=== PATIENT | male | born 1940 | race Caucasian/White ===

== ENCOUNTER → 2016-09-19 | Outpatient (REF) | payer MEDICARE, OTHER ==
--- NOTE | 2016-09-20 01:59 | REP ---
Clinical: Back pain extending to the extremities. Findings: Hip joint appears normal for age. Mild medial joint space narrowing is suggested without further overt osteoarthritic changes. No spurring or osteophytes are identified. No periarticular calcifications are identified. Surrounding soft tissues are unremarkable. Impression: Medial joint space narrowing. Otherwise age appropriate examination. Signed by Irving Miguel MD 09/20/2016 01:50 A
--- NOTE | 2016-09-20 02:03 | REP ---
Clinical: Lower back pain. Technique: AP, lateral, bilateral oblique, and coned-down views of the lumbosacral spine. Comparison: 10/10/2013. Findings: Moderate to advanced multilevel degenerative disc osteophyte complexes are again identified and essentially stable when compared to 2013. Findings include bridging osteophytes, endplate sclerosis/irregularity, disc space narrowing and hypertrophic facet changes. No acute fracture / compression injury or subluxation identified. Impression: Advanced multilevel degenerative changes similar to 10/10/2013. No evidence for acute fracture / compression injury or subluxation. Signed by Irving Miguel MD 09/20/2016 01:54 A
== END ==
LOC: M RAD 14:27 → EDSTATUS 11-09 16:43
PROVIDERS: ATTEND Internal Medicine
DX: M54.5 Low back pain (principal)

== ENCOUNTER → 2016-12-13 | Outpatient (CLI) | payer MEDICARE, OTHER ==
[~2016-12-13] VITALS: Ht 172.7 cm; Wt 75.3 kg
[~2016-12-13] MED LIST: NS 1,000 ML IV SCH; PROPOFOL 200 MG/20 ML VIAL As Ordered ONE
--- NOTE | 2016-12-13 10:59 | ROOR ---
Patient Name: Shiva Parmar Procedure Date: 12/13/2016 10:23 AM Date of : 1940 Age: 76 Room: [facility] Gender: Male Note Status: Finalized Procedure: Colonoscopy to Cecum + Cold Snare Polypectomy + Hemoclips Indications: Positive Cologuard test Providers: Tyrel Dewitt MD Referring MD: PARVEEN MILLS JR, MD Requesting Provider: Medicines: Monitored Anesthesia Care Complications: No immediate complications. Procedure: Pre-Anesthesia Assessment: - The heart rate, respiratory rate, oxygen saturations, blood pressure, adequacy of pulmonary ventilation, and response to care were monitored throughout the procedure. The Colonoscope was introduced through the anus and advanced to the cecum, identified by appendiceal orifice and ileocecal valve. The colonoscopy was performed without difficulty. The patient tolerated the procedure well. The quality of the bowel preparation was excellent. Findings: The perianal and digital rectal examinations were normal. Non-bleeding internal hemorrhoids were found during retroflexion. The hemorrhoids were small and Grade I (internal hemorrhoids that do not prolapse). Scattered small-mouthed diverticula were found in the recto-sigmoid colon, sigmoid colon and descending colon. A medium polyp was found at 10 cm proximal to the anus. The polyp was sessile. The polyp was removed with a cold snare. Resection and retrieval were complete. To prevent bleeding after the polypectomy, three hemostatic clips were successfully placed (MR conditional). There was no bleeding at the end of the procedure. Two sessile polyps were found in the mid ascending colon. The polyps were small in size. These polyps were removed with a cold snare. Resection and retrieval were complete. To prevent bleeding after the polypectomy, three hemostatic clips were successfully placed (MR conditional). There was no bleeding at the end of the procedure. The exam was otherwise without abnormality on direct and retroflexion views. Impression: - Non-bleeding internal hemorrhoids. - Diverticulosis in the recto-sigmoid colon, in the sigmoid colon and in the descending colon. - One medium polyp at 10 cm proximal to the anus, removed with a cold snare. Resected and retrieved. Clips (MR conditional) were placed. - Two small polyps in the mid ascending colon, removed with a cold snare. Resected and retrieved. Clips (MR conditional) were placed. - The examination was otherwise normal on direct and retroflexion views. - The exam was otherwise normal to the cecum. Recommendation: - Patient has a contact number available for emergencies. The signs and symptoms of potential delayed complications were discussed with the patient. Return to normal activities tomorrow. Written discharge instructions were provided to the patient. - High fiber diet. - Discharge patient to home. - Check Portal Online for Path Results.([email or web address]) - Continue present medications. - Await pathology results. - Return to referring physician. - The findings and recommendations were discussed with the patient's family. Tyrel Dewitt MD Tyrel Dewitt MD 12/13/2016 10:59:03 AM This report has been signed electronically. Number of Addenda: 0 Note Initiated On: 12/13/2016 10:23 AM Estimated Blood Loss: Estimated blood loss: none.
[2016-12-13 11:15] VITALS: BP 135/74
== END | disposition home or self-care (01) ==
LOC: M OPP 09:25
PROVIDERS: ATTEND Internal Medicine Gastroenterology
DX: K64.0 First degree hemorrhoids (principal); K57.30 Diverticulosis of large intestine without perforation or abscess without bleeding; K62.1 Rectal polyp; D12.2 Benign neoplasm of ascending colon; M19.90 Unspecified osteoarthritis, unspecified site; Z87.891 Personal history of nicotine dependence

== ENCOUNTER → 2018-05-08 | Outpatient (REF) | payer MEDICARE | LOC: M LAB REF 12:27 | DX: C44.519 Basal cell carcinoma of skin of other part of trunk (principal) | CPT/HCPCS: 88305 ==

== ENCOUNTER 2021-06-07 17:35 | Inpatient (IN) | payer MEDICARE, OTHER ==
[~2021-06-07] VITALS: Ht 172.7 cm; Wt 74.4 kg
--- NOTE | 2021-06-07 18:06 | REP ---
INDICATION: CHEST PAIN COMPARISON: None. TECHNIQUE: Portable AP view of the chest FINDINGS: The cardiac silhouette is mildly enlarged. Mediastinum is otherwise normal for portable technique. The lung mackenzie are clear without acute consolidation, effusion, or pneumothorax. Skeletal structures are intact. IMPRESSION: No acute cardiopulmonary process appreciated. <Electronically signed by Irving Miguel > 06/07/21 [id number]
[2021-06-07] MEDS: METOPROLOL 5 MG/5 ML VIAL IV SCH ×2 (18:42→20:11)
[2021-06-07 18:53] LABS: BASO % 0.5 % (0.0-1.0); EOS # 0.1 10^3/uL (0.0-0.5); EOS % 1.4 % (0.0-3.0); HEMATOCRIT 39.6 % (42.0-52.0); LYMPH # 1.1 10^3/uL (1.5-5.0); LYMPH % 18.1 % (24.0-44.0); MEAN CORPUSCULAR HEMOGLOBIN 31.6 pg (27.0-33.0); MEAN CORPUSCULAR HGB CONC 32.8 g/dl (32.0-36.5); MEAN CORPUSCULAR VOLUME 96.4 fl (80.0-96.0); MONO # 0.7 10^3/uL (0.0-0.8); MONO % 10.3 % (2.0-8.0); NEUTROPHILS # 4.4 10^3/uL (1.5-8.5); NEUTROPHILS % 69.4 % (36.0-66.0); PLATELET COUNT, AUTOMATED 189 10^3/uL (150-450); RED BLOOD COUNT 4.11 10^6/uL (4.30-6.10); WHITE BLOOD COUNT 6.3 10^3/uL (4.0-10.0)
[2021-06-07 19:28] LABS: BLOOD UREA NITROGEN 15 MG/DL (7-18); CALCIUM LEVEL 8.6 MG/DL (8.8-10.2); CARBON DIOXIDE LEVEL 26 MEQ/L (21-32); CHLORIDE LEVEL 108 MEQ/L (98-107); CK-MB VALUE MASS 5.8 NG/ML (<3.6); CPK CREATINE PHOSPHOKINASE 247 U/L (39-308); CREATININE FOR GFR 0.79 MG/DL (0.70-1.30); GLOMERULAR FILTRATION RATE > 60.0 (>35); GLUCOSE, FASTING 101 MG/DL (70-100); MB/CK RELATIVE INDEX 2.35 (< OR =4); POTASSIUM SERUM 4.6 MEQ/L (3.5-5.1); SODIUM LEVEL 139 MEQ/L (136-145); TROPONIN I < 0.02 NG/ML (< 0.10)
[2021-06-07] MEDS ORDERED: ACETAMINOPHEN TAB 650MG DOSE (2X325MG) PO PRN (20:00)
[2021-06-07] MEDS ORDERED: LEVALBUTEROL 1.25 MG/0.5 ML CONCENTRATE NEB NEB PRN (20:00)
[2021-06-07] MEDS ORDERED: LORazepam 0.5 MG TAB PO ONE (20:00)
[2021-06-07] MEDS ORDERED: BENZONATATE 100MG CAPSULE PO PRN (20:00)
[2021-06-07] MEDS ORDERED: CYCL5TAB PO (20:27)
[2021-06-07] MEDS ORDERED: D31000TA2 PO (20:27)
[2021-06-07] MEDS ORDERED: VITMTA PO ×2 (20:27)
[2021-06-07] MEDS ORDERED: ROSU40TA4 PO (20:27)
[2021-06-07] MEDS ORDERED: ACET-683 PO (20:27)
[2021-06-07] MEDS ORDERED: HOME MED LIST COMPLETE! XX SCH (20:30)
[2021-06-07] MEDS ORDERED: ENOXAPARIN 100MG/1ML SYRINGE (J1650 PER 10MG) SC ONE (21:00)
--- NOTE | 2021-06-07 21:47 | HPEPDOC ---
General Date of Admission 06/07/2020 Date of Service: Jun 07, 2021 Chief Complaint The patient is a 81-year-old male admitted with a reason for visit of Palpitations. Source: Patient Exam Limitations: Hard of hearing (pt without hearing aids; he responds appropriately and only asks for clarification once or twice with examiner wearing mask ) History of Present Illness Shiva Parmar is an 81-year-old male with significant medical history of hyperlipidemia, former smoker and osteoarthritis who presents with complaints of shortness of breath. Patient describes feeling at baseline until about 10 days ago. Patient describes at that time having a "squealing invoice" almost as if wheezing and he went to [facility] to obtain something for congestion/cough patient reports he took this medicine for 10 days 1 capsule every 12 hours possibly Mucinex but he is poor historian as to the name and as it was not doing anything he quit taking it. Since that time however he endorses some dyspnea on exertion generalized fatigue with activity and some mild trace ankle edema. Patient reports that he has not taken any other medications however 14 days ago he did stop taking a nerve medication for his osteoarthritis as he wants to limit his medication intake. Again, patient unable to say exact name of medication but he did describe as nerve pain medication that he would take with tramadol. As patient still not feeling well he opted to go to clinic today where he was found to have elevated heart rate and told to come to the ER. Pt denies page, sinus congestion, sore throat, productive cough, palpitations, chest pain, n/v/d, abdominal pain, sensory changes or syncope. Of note, patient diminished bases, no leukocytosis, normotensive however notably tachycardic 168 upon arrival irregularly irregular. EKG confirms A. fib RVR. BNP pending. Magnesium pending, calcium 8.6, hemoglobin 13, respiratory panel negative. Chest x-ray nonacute. Patient will be admitted for further evaluation management of presenting concerns. Home Medications Scheduled Cholecalciferol (Vitamin D3) (Vitamin D3) 1,000 Unit Tablet, 2,000 UNITS PO DAILY, (Reported) Multivitamins (Thera M Plus Tablet) 1 Each Tablet, 1 TAB PO QAM, (Reported) Multivitamins (Thera M Plus Tablet) 1 Each Tablet, 1 TAB PO DAILY, (Reported) Rosuvastatin Calcium (Rosuvastatin Calcium) 40 Mg Tablet, 40 MG PO DAILY, (Reported) Scheduled PRN Acetaminophen (Acetaminophen) 500 Mg Tablet, 500 MG PO Q4H PRN for PAIN LEVEL 1- 4, (Reported) Cyclobenzaprine HCl (Cyclobenzaprine HCl) 5 Mg Tablet, 2.5 MG PO TID PRN for MUSCLE SPASMS, (Reported) Allergies Coded Allergies: No Known Allergies (Unverified , 12/05/16) Past Medical History Medical History High cholesterol, former smoker, OA, LITTLE TRAVERSE- uses hearing aids Surgical History Hernia repair, sigmoidoscopy, right rotator cuff repair Family History Significant Family History: Cancer, COPD SisterCOPD, sister#2-COPD and heart disease, brother -COPD, father -COPD and throat cancer, mothercolon resection d/t ?Cancer Social History * Smoker: former Smoker (Quit 60 years) Alcohol: Denies Drugs: denies Recent Travel/Sick Contacts: Denies: Recent travel, Recent sick contacts Patient leads active lifestyle he reports hiking daily. A-FIB/CHADSVASC A-FIB History Current/History of A-Fib/PAF?: Yes Current PO Anticoag Therapy: No Age/Risk Factor Scoring CHADSVASC: CHADSVASC Response (Comments) Value Age Risk Factor Age >/= 75 years old 2 Gender Risk Factor Male 0 Hx of CHF No 0 Hx of HTN No 0 Hx of Stroke/TIA/or VTE No 0 Hx of Diabetes No 0 Hx of Vascular Disease No 0 Total 2 Treatment Treatment ordered: Other (Lovenox) Other anticoagulant ordered: Lovenox bridge Review of Systems Constitutional: Reports: Fatigue; Denies: Chills, Fever, Night Sweats Eyes: Denies: Pain, Vision change ENT: Denies: Head Aches, Ear Pain, Dysphagia Skin: Denies: Rash, Lesions, Breakdown Pulmonary: Reports: Dyspnea; Denies: Cough Cardiovascular: Reports: Edema; Denies: Chest Pain, Palpitations, Orthopnea, Paroxysmal Noc. Dyspnea, Lt Headedness Gastrointestinal: Denies: Nausea, Vomiting, Abdominal Pain, Diarrhea Genitourinary: Denies: Dysuria, Frequency, Incontinence, Retention Hematologic: Denies: Bruising, Bleeding Excessively Musculoskeletal: Denies: Neck Pain, Back Pain, Joint Pain, Muscle Pain, Spasms Neurological: Denies: Weakness, Numbness, Change in speech, Confusion Psych: Reports: Mood Normal; Denies: Depression, Memory Issues Physical Examination General Exam: Positive: Alert, Cooperative, No Acute Distress Eye Exam: Positive: PERRLA, Conjunctiva & lids normal, EOMI; Negative: Sclera icteric ENT Exam: Positive: Atraumatic, Mucous membr. moist/pink, Pharynx Normal Neck Exam: Positive: Supple; Negative: JVD, thyromegaly Chest Exam: Positive: Diminished (Diminished bases) Heart Exam: Positive: Tachycardic, Irregular Rhythm, Normal S1, Normal S2; Negative: Murmurs, Rubs Telemetry: Positive: Atrial fibrillation Abdomen Exam: Positive: Normal bowel sounds, Soft; Negative: Tenderness, Hepatospenomegaly Extremity Exam: Positive: Edema (Trace pedal edema), Normal pulses; Negative: Clubbing, Cyanosis, Tenderness Skin Exam: Positive: Nl turgor and temperature; Negative: Breakdown, Lesion Neuro Exam: Positive: Normal Gait, Normal Speech, Cranial Nerves 3-12 NL, Reflexes 2+ Psych Exam: Positive: Mental status NL, Mood NL, Oriented x 3 Vital Signs Vital Signs Date Time Temp Pulse Resp B/P (MAP) Pulse Ox O2 Delivery O2 Flow Rate FiO2 06/07/21 17:42 97.6 168 24 147/113 (124) 97 Room Air Laboratory Data Labs 24H Laboratory Tests 2 06/07/21 18:17: Immature Granulocyte % (Auto) 0.3, Neutrophils (%) (Auto) 69.4H, Lymphocytes (%) (Auto) 18.1L, Monocytes (%) (Auto) 10.3H, Eosinophils (%) (Auto) 1.4, Basophils (%) (Auto) 0.5, Neutrophils # (Auto) 4.4, Lymphocytes # (Auto) 1.1L, Monocytes # (Auto) 0.7, Eosinophils # (Auto) 0.1, Basophils # (Auto) 0.0, Nucleated Red B lood Cells % (auto) 0.0, Anion Gap 5L, Glomerular Filtration Rate > 60.0, Calcium Level 8.6L, Total Creatine Kinase 247, Creatine Kinase MB 5.8H, Creatine Kinase MB Relative Index 2.35, Troponin I < 0.02 CBC/BMP Laboratory Tests 06/07/21 18:17 Microbiology Microbiology 06/07/21 Respiratory Virus Panel (PCR) ([facility]), Received Pending Assessment/Plan 1. Saroj louis RVR: -Monitor patient on PCU, tele -IV rate controlling agents: Toprol x3. May do a dose of Cardizem or digoxin pend patient's blood pressure. If patient still uncontrolled consider drip. -Transition to PO agent -Chads Vasc elevated will initiate patient on anticoagulation Lovenox. -Consider differential: Check BNP, electrolytes, TSH. *Given patient with MATHIS/SOB, tachycardia and mild leg swelling will opt for D- dimer. If elevated will proceed with BLE ultrasound/CT chest PE protocol. -A.m. lab -Echo in a.m. 2. Cough in former smoker: Patient reports quitting smoking over 60 years ago. He does not report history of COPD. He does have complaints of "squealing in voice": And describes this as a coarse exhale which may be ?wheezing the past 10 days. Chest x-ray nonacute, patient afebrile and no leukocytosis. Tolerating RA at 98%. He may have a "cardiac cough" given above. - Plan for monitoring - PRN Tessalon Perles - As needed breathing treatments Xopenex. 3. Hyperlipidemia: Check lipid panel continue home medicine. 4. OA: Tramadol as needed. DVT prophylaxis: Lovenox subcu CODE STATUS: Full code Disposition planning: Home once patient therapeutically anticoagulated and rate controlled. He was encouraged that upon discharge he would need to follow-up with his PCP and cardiology. Plan / VTE VTE Prophylaxis Ordered?: Yes DALIA NIÑO NP Jun 07, 2021 20:08
[2021-06-07 22:02] LABS: NT-PRO BNP 3093 PG/ML (<450)
[2021-06-08] VITALS (17 sets, daily range): BP systolic 110–151; BP diastolic 76–104
[2021-06-08 04:27] LABS: BASO % 0.5 % (0.0-1.0); EOS # 0.1 10^3/uL (0.0-0.5); EOS % 1.4 % (0.0-3.0); HEMATOCRIT 37.5 % (42.0-52.0); HEMOGLOBIN 12.6 g/dl (13.5-17.5); LYMPH # 1.3 10^3/uL (1.5-5.0); LYMPH % 23.2 % (24.0-44.0); MEAN CORPUSCULAR HEMOGLOBIN 32.2 pg (27.0-33.0); MEAN CORPUSCULAR HGB CONC 33.6 g/dl (32.0-36.5); MEAN CORPUSCULAR VOLUME 95.9 fl (80.0-96.0); MONO # 0.7 10^3/uL (0.0-0.8); MONO % 11.7 % (2.0-8.0); NEUTROPHILS # 3.6 10^3/uL (1.5-8.5); PLATELET COUNT, AUTOMATED 175 10^3/uL (150-450); RED BLOOD COUNT 3.91 10^6/uL (4.30-6.10); WHITE BLOOD COUNT 5.7 10^3/uL (4.0-10.0)
[2021-06-08 05:13] LABS: BLOOD UREA NITROGEN 15 MG/DL (7-18); CALCIUM LEVEL 8.9 MG/DL (8.8-10.2); CARBON DIOXIDE LEVEL 22 MEQ/L (21-32); CHLORIDE LEVEL 111 MEQ/L (98-107); CHOLESTEROL LEVEL 117 MG/DL (<200); CREATININE FOR GFR 0.66 MG/DL (0.70-1.30); GLOMERULAR FILTRATION RATE > 60.0 (>35); GLUCOSE, FASTING 109 MG/DL (70-100); HDL CHOLESTEROL 75 MG/DL (>40); LDL CHOLESTEROL 33 MG/DL (<100); NON-HDL-C 42 MG/DL; POTASSIUM SERUM 4.1 MEQ/L (3.5-5.1); SODIUM LEVEL 139 MEQ/L (136-145); TRIGLYCERIDES LEVEL 47 MG/DL (<150); TROPONIN I < 0.02 NG/ML (< 0.10)
[2021-06-08] MEDS ORDERED: METOPROLOL 5 MG/5 ML VIAL IV STA (07:55)
[2021-06-08] MEDS ORDERED: NS 500 ML IV ONE (08:20)
[2021-06-08] MEDS ORDERED: METOPROLOL SUCC *XL* 25MG TAB (TopROL *XL*) PO SCH ×2 (09:00→17:00)
[2021-06-08] MEDS: ROSUVASTATIN 10 MG TAB (CRESTOR) PO SCH (09:31)
[2021-06-08] MEDS: VITAMIN D 1,000 INTERNATIONAL UNITS TABLET PO SCH (09:31)
[2021-06-08] MEDS: MULTIVITAMINS/MINERALS THERAP 1 TAB PO SCH (09:31)
[2021-06-08] MEDS: ENOXAPARIN 80MG/0.8ML SYRINGE (J1650 PER 10MG) SC SCH ×2 (09:32→21:17)
[2021-06-08] MEDS ORDERED: LORazepam 0.5 MG TAB PO ONE (11:20)
--- NOTE | 2021-06-08 14:14 | IPNPDOC ---
Subjective Date Seen The patient was seen on 06/08/21. Subjective Chief Complaint/HPI Patient was seen and examined at bedside this morning. He had no new complaints. He denied chest pain, shortness of breath, abdominal pain, nausea, vomiting, problem with urination or bowel movements. Objective Physical Examination Chest Exam: Positive: Diminished Other physical findings General: Lying in bed, no acute distress Head/Neck/Throat: Trachea midline, mucous membranes moist Eyes: Sclera anicteric, no erythema or discharge appreciated bilaterally Thorax: Normal respiratory effort on room air, lungs clear to auscultation bilaterally, no wheezes/rales/rhonchi Cardiovascular: Irregularly irregular heart rate 130, normal S1, S2; no S3, S4, rubs/gallops/murmurs Abdomen: Bowel sounds present, soft/nontender/nondistended Genitourinary: No CVA tenderness, no Ag in place Musculoskeletal: Moving all extremities, no edema Skin: Warm, dry Neurologic: AAOx3, speech fluent and goal-directed, no focal deficits, grossly intact Assessment /Plan Assessment #New onset atrial fibrillation with rapid ventricular response -Rate this morning was uncontrolled, will increase metoprolol 25 mg from daily to q8hrs, with holding parameters -Started on therapeutic Lovenox for systemic anticoagulation. -Follow-up on echocardiogram #Elevated D-dimer -Follow-up on CT angiography of the chest. #Hyperlipidemia -Resume ambulatory statin therapy #Osteoarthritis -Continue with ambulatory #DVT prophylaxis -Offered by out Lovenox Plan/VTE VTE Prophylaxis Ordered?: Yes VS, I&O, 24H, Fishbone Vital Signs/I&O Vital Signs Date Time Temp Pulse Resp B/P (MAP) Pulse Ox O2 Delivery O2 Flow Rate FiO2 06/08/21 11:14 141 20 132/95 (107) 98 Room Air 06/08/21 08:00 97.3 I&O- Last 24 Hours up to 6 AM 06/08/21 06:00 Intake Total 120 ml Output Total 200 ml Balance -80 ml Laboratory Data 24H LABS Laboratory Tests 2 06/07/21 18:17: Immature Granulocyte % (Auto) 0.3, Neutrophils (%) (Auto) 69.4H, Lymphocytes (%) (Auto) 18.1L, Monocytes (%) (Auto) 10.3H, Eosinophils (%) (Auto) 1.4, Basophils (%) (Auto) 0.5, Neutrophils # (Auto) 4.4, Lymphocytes # (Auto) 1.1L, Monocytes # (Auto) 0.7, Eosinophils # (Auto) 0.1, Basophils # (Auto) 0.0, Nucleated Red Blood Cells % (auto) 0.0, Anion Gap 5L, Glomerular Filtration Rate > 60.0, Calcium Level 8.6L, Magnesium Level 2.0, Total Creatine Kinase 247, Creatine Kinase MB 5.8H, Creatine Kinase MB Relative Index 2.35, Troponin I < 0.02, IU-Gwy-R-Type Natriuretic Peptide 3093H, Thyroid Stimulating Hormone (TSH) 2.520 06/07/21 22:14: D-Dimer, Quantitative 694.46H 06/08/21 04:02: Immature Granulocyte % (Auto) 0.2, Neutrophils (%) (Auto) 63.0, Lymphocytes (%) (Auto) 23.2L, Monocytes (%) (Auto) 11.7H, Eosinophils (%) (Auto) 1.4, Basophils (%) (Auto) 0.5, Neutrophils # (Auto) 3.6, Lymphocytes # (Auto) 1.3L, Monocytes # (Auto) 0.7, Eosinophils # (Auto) 0.1, Basophils # (Auto) 0.0, Nucleated Red Blood Cells % (auto) 0.0, Anion Gap 6L, Glomerular Filtration Rate > 60.0, Calcium Level 8.9, Magnesium Level 2.0, Troponin I < 0.02, Triglycerides Level 47, Total Cholesterol 117, LDL Cholesterol 33, Non-HDL Cholesterol (LDL + VLDL) 42, Total HDL Cholesterol 75, Cholesterol/HDL Ratio 1.560 CBC/BMP Laboratory Tests 06/07/21 18:17 06/08/21 04:02 Microbiology Microbiology 06/07/21 Respiratory Virus Panel (PCR) ([facility]) - Final, Complete MERARY EARL M.D. Jun 08, 2021 11:23
[2021-06-08] MEDS ORDERED: METOPROLOL TART 25 MG TABLET PO ONE (16:00)
[2021-06-08] MEDS: METOPROLOL SUCC *XL* 25MG TAB (TopROL *XL*) PO SCH (21:16)
--- NOTE | 2021-06-08 21:28 | ECHO ---
ECHOCARDIOGRAM DATE OF PROCEDURE: 06/08/2021 Age: Gender: Height: 173 cm Weight: 71 kg REFERRING PHYSICIAN: Dr. Dinero INDICATION: Atrial fibrillation. MEASUREMENTS: IVS 1.0 LV 5.0 LVPW 1.2 LA 4.2 Aorta 3.9 IVC 2.4 FINDINGS: The study is of good technical quality. Patient is in atrial fibrillation with rapid ventricular rate, averaging approximately 120 beats per minute. Wide QRS complex. Left ventricle is normal size. There is severe global hypokinesis and septal dyskinesis, likely corresponding to underlying conductive system disease. Overall estimated LVEF approximately 20%-25%. Right ventricle is also dilated and hypokinetic. There is severe biatrial enlargement. Aortic valve is tricuspid and grossly appears normal. Same applies for mitral and tricuspid valves. Pulmonic valve was not well seen. No pericardial effusion is noted. Inferior vena cava is dilated, and there is limited collapse with inspiration, indicative of high central venous pressure. Aortic root is borderline dilated at 3.9 cm. Aortic arch and abdominal aorta were not well seen. Doppler interrogation of aortic valve reveals no significant stenosis or insufficiency. There is at least moderate if not moderately severe mitral insufficiency, likely secondary to LV dysfunction. Approximately mild tricuspid insufficiency is seen. Calculated pulmonary artery pressure is in high 30s, but it probably underestimates the severity of pulmonary hypertension due to poor quality of TR jet. CONCLUSIONS: 1. Study is of good technical quality. Underlying atrial fibrillation with rapid ventricular response and wide QRS complex. 2. Normal LV size with global severe hypokinesis and septal dyskinesis and overall estimated LVEF 20%-25%. 3. Dilated hypokinetic right ventricle. 4. Severe biatrial enlargement. 5. At least moderate mitral insufficiency, likely secondary to LV dysfunction. 6. High central venous pressure and at least mild and more likely moderate pulmonary hypertension. 7. Dilated aortic root 3.9 cm.
--- NOTE | 2021-06-08 21:30 | ECGEPIP ---
[facility] - ED Test Date: 2021-06-07 Pat Name: MARIO MARTINEZ Department: Room: [place] [address] Gender: Male [employer]: mil : 1940 Requested By: Yamil Kruger Order Number: [id number] Reading MD: Peter More Measurements Intervals [place] Rate: 158 P: MS: QRS: -35 QRSD: 76 T: 85 QT: 290 QTc: 470 Interpretive Statements Atrial fibrillation with rapid ventricular response Left axis deviation Nonspecific T wave abnormality Comparison tracing not on file Electronically Signed on 06-08-2021 21:29:53 EDT by Peter More
[2021-06-08] MEDS ORDERED: DIGOXIN INJ 0.5 MG/2 ML AMP (J1160) IV ONE (21:45)
[2021-06-09] VITALS: BP 131/100
[2021-06-09] MEDS ORDERED: METOPROLOL 5 MG/5 ML VIAL IV STA (03:28)
[2021-06-09 03:48] VITALS: BP 132/93
[2021-06-09 04:00] VITALS: BP 129/98
[2021-06-09 05:18] VITALS: BP 129/98
[2021-06-09] MEDS: METOPROLOL SUCC *XL* 25MG TAB (TopROL *XL*) PO SCH (05:18)
[2021-06-09 05:27] LABS: BASO % 0.5 % (0.0-1.0); EOS % 0.3 % (0.0-3.0); HEMATOCRIT 42.7 % (42.0-52.0); LYMPH # 1.1 10^3/uL (1.5-5.0); MEAN CORPUSCULAR HEMOGLOBIN 31.6 pg (27.0-33.0); MEAN CORPUSCULAR HGB CONC 32.8 g/dl (32.0-36.5); MEAN CORPUSCULAR VOLUME 96.4 fl (80.0-96.0); MONO # 0.7 10^3/uL (0.0-0.8); MONO % 9.1 % (2.0-8.0); NEUTROPHILS # 5.8 10^3/uL (1.5-8.5); NEUTROPHILS % 75.7 % (36.0-66.0); PLATELET COUNT, AUTOMATED 211 10^3/uL (150-450); RED BLOOD COUNT 4.43 10^6/uL (4.30-6.10); WHITE BLOOD COUNT 7.7 10^3/uL (4.0-10.0)
[2021-06-09 05:58] LABS: BLOOD UREA NITROGEN 21 MG/DL (7-18); CALCIUM LEVEL 8.7 MG/DL (8.8-10.2); CARBON DIOXIDE LEVEL 23 MEQ/L (21-32); CHLORIDE LEVEL 108 MEQ/L (98-107); CREATININE FOR GFR 0.82 MG/DL (0.70-1.30); GLOMERULAR FILTRATION RATE > 60.0 (>35); GLUCOSE, FASTING 106 MG/DL (70-100); MAGNESIUM LEVEL 1.9 MG/DL (1.8-2.4); PHOSPHORUS LEVEL 3.6 MG/DL (2.5-4.9); POTASSIUM SERUM 4.4 MEQ/L (3.5-5.1); SODIUM LEVEL 138 MEQ/L (136-145)
[2021-06-09] MEDS ORDERED: DIGOXIN INJ 0.5 MG/2 ML AMP (J1160) IV ONE (07:00)
[2021-06-09 08:00] VITALS: BP 142/60
[2021-06-09] MEDS ORDERED: DIGOXIN 0.25 MG TAB PO ONE (08:05)
[2021-06-09] MEDS: VITAMIN D 1,000 INTERNATIONAL UNITS TABLET PO SCH (08:25)
[2021-06-09] MEDS: MULTIVITAMINS/MINERALS THERAP 1 TAB PO SCH (08:25)
[2021-06-09] MEDS: ROSUVASTATIN 10 MG TAB (CRESTOR) PO SCH (08:27)
[2021-06-09] MEDS: ENOXAPARIN 80MG/0.8ML SYRINGE (J1650 PER 10MG) SC SCH (08:28)
--- NOTE | 2021-06-09 10:52 | DS.PDOC ---
Discharge Summary General Date of Admission Jun 07, 2021 at 20:00 Date of Discharge 06/09/21 Discharge Summary DISCHARGE DIAGNOSES: 1. A. fib with RVR 2. HFrEF COMPLICATIONS/CHIEF COMPLAINT: Atrial Fibrillation With Rvr. HISTORY OF PRESENT ILLNESS: HOSPITAL COURSE: Mr. Parmar, is a 81-year-old male with a past medical history of hyperlipidemia who presented to the emergency room department at [facility] on 06/07/2021 with complaints of shortness of breath. In the emergency room dep artment he was noted to be in atrial fibrillation with a rapid ventricular response and an elevated D-dimer. Therefore was admitted for further management. His atrial fibrillation as well as elevated D-dimer were still being managed however patient decided to leave AGAINST MEDICAL ADVICE not wanting any further interventions or medications at this time. He reported he would follow-up with his primary care physician as soon as possible. He was spoken to in length about the risks of leaving AGAINST MEDICAL ADVICE including disabling stroke, possible clots traveling to his lungs or brain or other parts of his body, and also . He is willing to accept these risks and wanted to go home. At the time he decided to leave AGAINST MEDICAL ADVICE he was alert, awake, oriented x3. He had full capacity to make his decisions. Medications were discussed with him prior to leaving, he was okay for the blood thinner (Eliquis) to be sent to the pharmacy as well as the metoprolol. He understood the risks of being on a blood thinner and was willing to accept him. He also was instructed on how to take his metoprolol (to check his blood pressure as well as heart rate prior to taking it and was explained when to hold it). He did not want any further medications added to this regimen despite his heart rate being uncontrolled. He was also aware of the CTA that was pending of the chest to be done. He understood the risks of not having the study done including a clot in the lungs that can be contributing to his symptoms. He was also made aware of his echocardiogram findings and the medicine team wanting to get in touch with cardiology before him leaving. DISCHARGE MEDICATIONS: Please see below. ALLERGIES: Please see below. PHYSICAL EXAMINATION ON DISCHARGE: VITAL SIGNS: Please see below. General: Lying in bed, no acute distress Head/Neck/Throat: Trachea midline, mucous membranes moist Eyes: Sclera anicteric, PERRLA Thorax: Normal respiratory effort on room air, lungs clear to auscultation bilaterally, no wheezes/rales/rhonchi Cardiovascular: Irregularly irregular rhythm with heart rate to 130, normal S1, S2; Abdomen: Bowel sounds present, soft/nontender/nondistended Genitourinary: No CVA tenderness, no Ag in place Musculoskeletal: Moving all extremities, no edema Skin: Warm, dry Neurologic: AAOx3, speech fluent and goal-directed, no focal deficits, grossly i ntact LABORATORY DATA: Please see below. IMAGING: PORTABLE CHEST X-RAY FINDINGS: The cardiac silhouette is mildly enlarged. Mediastinum is otherwise normal for portable technique. The lung mackenzie are clear without acute consolidation, effusion, or pneumothorax. Skeletal structures are intact. IMPRESSION: No acute cardiopulmonary process appreciated. PROGNOSIS: Guarded ACTIVITY: As tolerated DIET: As tolerated DISPOSITION: 07 Against Medical Advice. DISCHARGE INSTRUCTIONS: 1. 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 Vital Signs/I&Os Vital Signs Date Time Temp Pulse Resp B/P (MAP) Pulse Ox O2 Delivery O2 Flow Rate FiO2 06/09/21 08:25 145 06/09/21 08:00 142/60 (87) 06/09/21 07:32 98.7 20 99 Room Air I&O- Last 24 Hours up to 6 AM 06/09/21 05:59 Intake Total 1820 ml Output Total 1200 ml Balance 620 ml Laboratory Data Labs 24H Laboratory Tests 2 06/08/21 15:27: Troponin I < 0.02 06/08/21 17:44: Troponin I < 0.02 06/09/21 04:52: Immature Granulocyte % (Auto) 0.4, Neutrophils (%) (Auto) 75.7H, Lymphocytes (%) (Auto) 14.0L, Monocytes (%) (Auto) 9.1H, Eosinophils (%) (Auto) 0.3, Basophils (%) (Auto) 0.5, Neutrophils # (Auto) 5.8, Lymphocytes # (Auto) 1.1L, Monocytes # (Auto) 0.7, Eosinophils # (Auto) 0.0, Basophils # (Auto) 0.0, Nucleated Red Blood Cells % (auto) 0.0, Anion Gap 7L, Glomerular Filtration Rate > 60.0, Calcium Level 8.7L, Phosphorus Level 3.6, Magnesium Level 1.9 CBC/BMP Laboratory Tests 06/09/21 04:52 Microbiology Microbiology 06/07/21 Respiratory Virus Panel (PCR) ([facility]) - Final, Complete Discharge Medications Scheduled Apixaban (Eliquis) 5 Mg Tablet, 1 TAB PO BID Aspirin (Aspirin) 81 Mg Tab.chew, 1 TAB PO DAILY Cholecalciferol (Vitamin D3) (Vitamin D3) 1,000 Unit Tablet, 2,000 UNITS PO DAILY, (Reported) Metoprolol Tartrate (Metoprolol Tartrate) 50 Mg Tablet, 50 MG PO TID Do not take if you are systolic blood pressure is less than 110 Do not take if your heart rate is less than 60 Multivitamins (Thera M Plus Tablet) 1 Each Tablet, 1 TAB PO QAM, (Reported) Multivitamins (Thera M Plus Tablet) 1 Each Tablet, 1 TAB PO DAILY, (Reported) Rosuvastatin Calcium (Rosuvastatin Calcium) 40 Mg Tablet, 40 MG PO DAILY, (Reported) Scheduled PRN Acetaminophen (Acetaminophen) 500 Mg Tablet, 500 MG PO Q4H PRN for PAIN LEVEL 1- 4, (Reported) Cyclobenzaprine HCl (Cyclobenzaprine HCl) 5 Mg Tablet, 2.5 MG PO TID PRN for MUSCLE SPASMS, (Reported) Allergies Coded Allergies: No Known Allergies (Unverified , 12/05/16) MERARY EARL M.D. Jun 09, 2021 10:52
[2021-06-09] MEDS ORDERED: METO50TA7 PO (10:55)
[2021-06-09] MEDS ORDERED: ASPI1CHW3 PO (10:55)
[2021-06-09] MEDS ORDERED: ELIQ5TAB PO (10:55)
== END 2021-06-09 09:44 | disposition left against medical advice (07) | DRG 309 ==
LOC: M ED 17:35 → M ED INP 20:00 → M PCU 06-08 00:05
PROVIDERS: ADMIT Internal Medicine; ATTEND Internal Medicine
DX: I48.91 Unspecified atrial fibrillation (principal); I50.22 Chronic systolic (congestive) heart failure; E78.5 Hyperlipidemia, unspecified; Z87.891 Personal history of nicotine dependence; M19.90 Unspecified osteoarthritis, unspecified site; Z79.899 Other long term (current) drug therapy; H91.93 Unspecified hearing loss, bilateral; R79.89 Other specified abnormal findings of blood chemistry

== ENCOUNTER → 2023-06-20 | Outpatient (CLI) | payer MEDICARE ==
[~2023-06-20] MED LIST changes: +ACET-683 PO; +ASPI-655 PO; +CYCL5TAB PO; +ELIQ5TAB PO; +METO50TA7 PO; -NS 1,000 ML IV SCH; -PROPOFOL 200 MG/20 ML VIAL As Ordered ONE; +ROSU40TA4 PO; +VITA100093 PO; +VITMTA PO
== END ==
LOC: M ONCR 10:56
PROVIDERS: ATTEND General Practice
DX: C44.01 Basal cell carcinoma of skin of lip (principal); Z71.2 Person consulting for explanation of examination or test findings; Z79.01 Long term (current) use of anticoagulants; Z79.899 Other long term (current) drug therapy; Z80.0 Family history of malignant neoplasm of digestive organs; Z98.2 Presence of cerebrospinal fluid drainage device

== ENCOUNTER 2023-06-26 10:10 | Outpatient (RCR) | payer MEDICARE, OTHER | END 2023-06-27 | LOC: M ONCR 10:10 | PROVIDERS: ATTEND General Practice | DX: C44.01 Basal cell carcinoma of skin of lip (principal) ==

== ENCOUNTER 2023-07-07 08:57 | Outpatient (RCR) | payer MEDICARE, OTHER ==
[~2023-07-07 08:57] MED LIST changes: +ALPR0.5T3 PO
== END 2023-07-27 ==
LOC: M ONCR 08:57
PROVIDERS: ATTEND General Practice
DX: Z51.0 Encounter for antineoplastic radiation therapy (principal); C44.01 Basal cell carcinoma of skin of lip

== ENCOUNTER → 2023-07-19 | Outpatient (REF) | payer MEDICARE, OTHER | LOC: M SFHCDERM 14:41 | PROVIDERS: ATTEND Dermatology | DX: Z48.02 Encounter for removal of sutures (principal) ==

== ENCOUNTER → 2023-08-10 | Outpatient (REF) | payer MEDICARE | LOC: M SFHCDERM 17:24 | PROVIDERS: ATTEND Dermatology | DX: T14.8XXA Other injury of unspecified body region, initial encounter (principal) ==